=== PATIENT | male | born 1980 | race Caucasian/White ===

== ENCOUNTER 2017-08-11 12:18 | Emergency (ER) | payer BC, OTHER | END 2017-08-11 13:02 | disposition home or self-care (01) | LOC: E/R 12:18 | DX: Z48.02 Encounter for removal of sutures (principal) | CPT/HCPCS: 99281; Z7502 ==

== ENCOUNTER 2018-08-13 07:37 | Emergency (ER) | payer MEDICAID, OTHER ==
[2018-08-13] MEDS: DEXAMETHASONE 10 MG/ML 1 ML INJ IV (08:11)
[2018-08-13] MEDS: KETOROLAC 30 MG INJ IV (08:11)
[2018-08-13] MEDS: SOD CHLORIDE 0.9% 1,000 ML IV (08:12)
[2018-08-13] MEDS: AMPICILLIN/SULB 3 GM/NS (PMX) 100 ML IVPB (08:27)
[2018-08-13] MEDS: HYDROmorphONE 0.5 MG/0.5 ML SYG IV (10:02)
[2018-08-13] MEDS: LIDOCAINE 1%/EPI 30 ML INJ INJ (12:32)
[2018-08-13] MEDS: LIDOCAINE 1%/EPI (1:100,000) (MDV) 20 ML INJ (12:32)
== END 2018-08-13 14:10 | disposition home or self-care (01) ==
LOC: E/R 07:37
DX: J36 Peritonsillar abscess (principal)
CPT/HCPCS: 42700; 96374; 96375; 99284-25